=== PATIENT | male | born 1985 | race Asian ===

== ENCOUNTER 2016-09-20 14:58 | Emergency (ER) | payer OTHER ==
[2016-09-20 15:03] VITALS: TEMP 98; BMI 34.4
[2016-09-20] MEDS ORDERED: IBUPROFEN 600 MG TABLET (FP) PO ONE ×2 (15:50→15:52)
[2016-09-20 16:28] VITALS: BP 140/105; PULSE 93
[2016-09-20] MEDS ORDERED: METOCLOPRAMIDE HCL 10 MG TABLET (FP) PO ONE (16:29)
[2016-09-20] MEDS ORDERED: KETOROLAC TROMETHAMINE 30 MG/1 ML VIAL ONE (16:29)
[2016-09-20] MEDS ORDERED: METOCLOPRAMIDE HCL INJECTION 10 MG/2 ML VIAL ONE (16:30)
[2016-09-20] MEDS ORDERED: METOCLOPRAMIDE HCL INJECTION 10 MG/2 ML VIAL IVPB ONE (16:30)
[2016-09-20] MEDS ORDERED: KETOROLAC TROMETHAMINE 30 MG/1 ML VIAL IVPUSH ONE (16:30)
--- NOTE | 2016-09-20 16:57 | PDOC ---
History of Present Illness - General Chief Complaint: Headache Stated Complaint: HEADACHES Time Seen by Provider: 09/20/16 15:30 History Source: Patient Exam Limitations: No Limitations - History of Present Illness Initial Comments: 09/20/16 16:56 Chief complaint: Headache Patient is a healthy 31-year-old male complaining of 1-1/2 months of constant on and off headaches, worse in the last day, has been taking Tylenol and Motrin. Patient denies any difficulty with arms and legs, no vomiting, and is ambulatory. Patient states it's mostly a frontal headache going to the back. Patient has not been evaluated for this in the past. GENERAL/CONSTITUTIONAL: No fever, weakness. dizziness HEAD, EYES, EARS, NOSE AND THROAT: No change in vision. No ear pain or discharge. No sore throat. CARDIOVASCULAR: No chest pain RESPIRATORY: No shortness of breath or cough GASTROINTESTINAL: No pain, nausea, vomiting, diarrhea or constipation GENITOURINARY: No dysuria MUSCULOSKELETAL: No neck or back pain SKIN: No rash NEUROLOGIC: + headache, no: vertigo, loss of consciousness, or loss of sensation. GENERAL: The patient is awake, alert, and fully oriented, in no acute distress. HEAD: Normal with no signs of trauma. EYES: Pupils equal, round and reactive to light, sclera anicteric, conjunctiva clear. EOMs intact Cranial nerves II through XII grossly intact ENT: pharynx: no erythema, no exudate, uvula midline NECK: supple CHEST: clear, nontender, rr ABD: soft, nontender EXTREMITIES: Normal range of motion, no edema. NEUROLOGICAL: Normal speech, normal gait. SKIN: Warm, Dry Past History - Past Medical History Allergies/Adverse Reactions: Allergies Allergy/AdvReac Type Severity Reaction Status Date / Time No Known Allergies Allergy Verified 09/20/16 15:00 Home Medications: Ambulatory Orders Omeprazole Magnesium [Prilosec] 2.5 mg PO ASDIR 09/20/16 - Psycho/Social/Smoking Cessation Hx Anxiety: No Suicidal Ideation: No Smoking History: Never smoked Have you smoked in the past 12 months: No Number of Cigarettes Smoked Daily: 0 Information on smoking cessation initiated: No Hx Alcohol Use: No Drug/Substance Use Hx: No Substance Use Type: None *Physical Exam - Vital Signs Last Vital Signs Temp Pulse Resp BP Pulse Ox 98.0 F 93 H 16 140/105 100 09/20/16 15:01 09/20/16 16:25 09/20/16 16:25 09/20/16 16:25 09/20/16 16:25 ED Treatment Course - RADIOLOGY Radiology Studies Ordered: Category Date Time Status HEAD CT WITHOUT CONTRAST [CT] Stat CT Scan 09/20/16 15:50 Completed - Medications Given in the ED: ED Medications Discontinued Medications Generic Name Dose Route Start Last Admin Trade Name Marcia PRN Reason Stop Dose Admin Ibuprofen 600 mg 09/20/16 15:50 09/20/16 15:53 Motrin - PO 09/20/16 15:51 600 mg ONCE ONE Administration Ketorolac Tromethamine 30 mg 09/20/16 16:30 09/20/16 16:38 Toradol Injection - IVPUSH 09/20/16 16:31 30 mg ONCE ONE Administration Metoclopramide HCl 10 mg 09/20/16 16:30 09/20/16 16:38 Reglan Injection - IVPB 09/20/16 16:31 10 mg ONCE ONE Administration Medical Decision Making - Medical Decision Making 09/20/16 Agent with ongoing headache, 2 weeks, elevated blood pressure, we'll get a head CT given worsening headache, we'll retake blood pressure and correlate with CT and symptoms and if CT is negative will treat for headache, and reevaluate blood pressure again 5:30 PM patient feels better after medication, blood pressure has normalized will follow-up with regular doctor, discussed fully with him and patient had all questions answered *DC/Admit/Observation/Transfer Diagnosis at time of Disposition: Headache Qualifiers: Headache type: unspecified Headache chronicity pattern: unspecified pattern Intractability: not intractable Qualified Code(s): R51 - Headache - Discharge Dispostion Disposition: HOME Condition at time of disposition: Stable Admit: No - Patient Instructions Printed Discharge Instructions: DI for Headache Additional Instructions: Follow-up with your doctor tomorrow, he will be take your blood pressure, further assess her symptoms and do necessary evaluation and management. Return to the ER if you're worse or other concerns
== END 2016-09-20 17:41 | disposition home or self-care (01) ==
LOC: JER 14:58 → JERFT 14:58
PROC: 3E0333Z Introduction of Anti-inflammatory into Peripheral Vein, Percutaneous Approach (ICD-10-PCS; principal; 2016-09-20)
PROC: 3E033GC Introduction of Other Therapeutic Substance into Peripheral Vein, Percutaneous Approach (ICD-10-PCS; 2016-09-20)
DX: R51 Headache (principal); I10 Essential (primary) hypertension
CPT/HCPCS: 70450-TC; 96374; 96375; 99281-25

== ENCOUNTER 2017-05-19 21:25 | Emergency (ER) | payer OTHER ==
[2017-05-19 21:31] VITALS: BP 160/98; PULSE 96; TEMP 98.4; BMI 34.1
--- NOTE | 2017-05-19 21:34 | PDOC ---
Rapid Medical Evaluation Time Seen by Provider: 05/19/17 21:29 Medical Evaluation: Allergies Allergy/AdvReac Type Severity Reaction Status Date / Time No Known Allergies Allergy Verified 09/20/16 15:00 05/19/17 21:29 I have performed a brief in-person evaluation of this patient. The patient presents with a chief complaint of: throat and ear pain x2 weeks, Pertinent physical exam findings: posterior oropharynx erythema. Serous effusion r ear I have ordered the following: Rapid strep The patient will proceed to the ED for further evaluation.
--- NOTE | 2017-05-19 22:31 | PDOC ---
History of Present Illness - General Chief Complaint: Sore Throat Stated Complaint: THROAT/EAR INFECTION Time Seen by Provider: 05/19/17 21:29 History Source: Patient Exam Limitations: No Limitations - History of Present Illness Initial Comments: 05/19/17 22:24 31 yr male with sore throat started 2 weeks ago comes and goes with low grade fever. family at home with same symptoms. Pt also with right ear pain. Timing/Duration: constant, intermittent Severity: moderate Past History - Past Medical History Allergies/Adverse Reactions: Allergies Allergy/AdvReac Type Severity Reaction Status Date / Time No Known Allergies Allergy Verified 09/20/16 15:00 Home Medications: Ambulatory Orders Azithromycin [Zithromax 250mg Tablets -] 250 mg PO UTDICT #6 tab 05/19/17 COPD: No Other medical history: denies - Suicide/Smoking/Psychosocial Hx Smoking History: Never smoked Have you smoked in the past 12 months: No Number of Cigarettes Smoked Daily: 0 Information on smoking cessation initiated: No Hx Alcohol Use: No Drug/Substance Use Hx: No Substance Use Type: None Review of Systems - Review of Systems Able to Perform ROS?: Yes Is the patient limited Sammarinese proficient: No Constitutional: Yes: Symptoms Reported, Fever HEENTM: Yes: Ear Pain (right ), Throat Pain Respiratory: No: Symptoms reported Cardiac (ROS): No: Symptoms Reported ABD/GI: No: Symptoms Reported *Physical Exam - Vital Signs Last Vital Signs Temp Pulse Resp BP Pulse Ox 98.4 F 96 H 18 160/98 97 05/19/17 21:29 05/19/17 21:29 05/19/17 21:29 05/19/17 21:29 05/19/17 21:29 - Physical Exam General Appearance: Yes: Nourished HEENT: positive: EOMI, JENNIFER, TM Bulging, TM Erythema (right ) Neck: positive: Supple, Lymphadenopathy (R). negative: Tender, Lymphadenopathy (L), Rigidity, Tender lateral, Tender midline Respiratory/Chest: positive: Lungs Clear, Normal Breath Sounds. negative: Chest Tender Cardiovascular: positive: Regular Rhythm, Regular Rate Extremity: positive: Normal Capillary Refill, Normal Inspection, Normal Range of Motion Integumentary: positive: Normal Color, Dry, Warm ED Treatment Course - ADDITIONAL ORDERS Additional order review: 05/19/17 21:35 Group A Strep Rapid Antigen - Final Throat Medical Decision Making - Medical Decision Making 05/19/17 22:27 cc: sore throat ear pain on and off 2 weeks non toxic well appearing in no distress pt states the sore throat is getting worse taking OTC meds without relief negative rapid strep however will treat as pt has had 2 weeks of symptoms, is not improving *DC/Admit/Observation/Transfer Diagnosis at time of Disposition: Pharyngitis Qualifiers: Pharyngitis/tonsillitis etiology: unspecified etiology Qualified Code(s): J02.9 - Acute pharyngitis, unspecified - Discharge Dispostion Disposition: HOME Condition at time of disposition: Good - Prescriptions Prescriptions: Azithromycin [Zithromax 250mg Tablets -] 250 mg PO UTDICT #6 tab - Referrals Referrals: Esvin Nix MD [Staff Physician] - - Patient Instructions Additional Instructions: gargle with warm salt water 4-5 times a day take ibuprofen or tylenol for fever or pain follow with the ENT doctor if no improvement after taking the antibiotics - Post Discharge Activity
== END 2017-05-19 22:49 | disposition home or self-care (01) ==
LOC: JERFT 21:25
DX: J02.9 Acute pharyngitis, unspecified (principal)
CPT/HCPCS: 87070; 87077; 87430; 99281-25

== ENCOUNTER 2018-08-27 08:06 | Emergency (ER) | payer OTHER ==
[2018-08-27 08:18] VITALS: BP 133/92; PULSE 87; TEMP 98.1; BMI 34.4
[2018-08-27] MEDS ORDERED: KETOROLAC TROMETHAMINE 60 MG/2 ML VIAL IM ONE (08:44)
[2018-08-27] MEDS ORDERED: KETOROLAC TROMETHAMINE 60 MG/2 ML VIAL ONE (08:45)
--- NOTE | 2018-08-27 08:51 | PDOC ---
History of Present Illness - General Chief Complaint: Pain Stated Complaint: HEAD AND BACK PAIN Time Seen by Provider: 08/27/18 08:36 History Source: Patient Exam Limitations: No Limitations (back, leg pain and headache x 5 days) - History of Present Illness Associated Symptoms: reports: headaches. denies: cough, diaphoresis, fever/ chills, syncope Past History - Travel Traveled outside of the country in the last 30 days: No Close contact w/someone who was outside of country & ill: No - Past Medical History Allergies/Adverse Reactions: Allergies Allergy/AdvReac Type Severity Reaction Status Date / Time No Known Allergies Allergy Verified 08/27/18 08:18 Home Medications: Ambulatory Orders Cyclobenzaprine HCl [Flexeril -] 10 mg PO TID #21 tablet 08/27/18 Ibuprofen 800 mg PO ACDIN 7 Days #21 tablet 08/27/18 COPD: No - Suicide/Smoking/Psychosocial Hx Smoking History: Never smoked Have you smoked in the past 12 months: No Number of Cigarettes Smoked Daily: 0 Hx Alcohol Use: No Drug/Substance Use Hx: No Substance Use Type: None Review of Systems - Review of Systems Constitutional: No: Chills, Fever HEENTM: No: Nose Congestion, Throat Swelling, Difficulty Swallowing Respiratory: No: Shortness of Breath Cardiac (ROS): No: Chest Pain ABD/GI: No: Nausea Musculoskeletal: Yes: Back Pain. No: Muscle Pain, Muscle Weakness Neurological: Yes: Headache. No: Numbness, Paresthesia, Seizure, Tingling, Tremors, Weakness, Dizziness *Physical Exam - Vital Signs Last Vital Signs Temp Pulse Resp BP Pulse Ox 98.1 F 87 18 133/92 99 08/27/18 08:16 08/27/18 08:16 08/27/18 08:16 08/27/18 08:16 08/27/18 08:16 - Physical Exam General Appearance: Yes: Nourished HEENT: positive: EOMI, JENNIFER, TMs Normal, Pharynx Normal Neck: positive: Supple Respiratory/Chest: positive: Lungs Clear, Normal Breath Sounds Cardiovascular: positive: Regular Rhythm, Regular Rate, S1, S2 Musculoskeletal: positive: Normal Inspection Extremity: positive: Normal Capillary Refill, Normal Inspection, Normal Range of Motion, Other (FROM all extremities, + muscle tenderness in LS spine and hamstrings., neg SLR) Neurologic: positive: slumber room attendant II-XII NML intact, Fully Oriented, Alert Moderate Sedation - Procedure Monitoring Vital Signs: Procedure Monitoring Vital Signs Temperature 98.1 F 08/27/18 08:16 Pulse Rate 87 08/27/18 08:16 Respiratory Rate 18 08/27/18 08:16 Blood Pressure 133/92 08/27/18 08:16 O2 Sat by Pulse Oximetry (%) 99 08/27/18 08:16 Medical Decision Making - Medical Decision Making 08/27/18 08:48 Patient is a 33 years old male with no prior medical history. Presents with lower back pain pain behind both hamstrings and headache for 5 days. Patient denies any trauma or heavy lifting or strenuous activity. He reports his headache is only relieved with Aleve, + intermittent photophobia. He denies any visual disturbance , sinus pressure, URI sx, nausea, vomiting. Pt reports his blood pressure was elevated for the past 2 years but has been monitoring it on diet. PCP is aware. Patient denies any UTI symptoms any bowel bladder incontinence or saddle anesthesia. non focal neuro exam + muscle tenderness behind ham strings toradol given Rx for flexeril PCP f/u for BP monitor discussed 08/27/18 11:58 pt reassessed after toradol, felt much better 08/27/18 19:39 *DC/Admit/Observation/Transfer Diagnosis at time of Disposition: Back muscle spasm Headache Qualifiers: Headache type: unspecified Headache chronicity pattern: acute headache Intractability: not intractable Qualified Code(s): R51 - Headache - Discharge Dispostion Disposition: HOME Condition at time of disposition: Stable Decision to Admit order: No - Prescriptions Prescriptions: Cyclobenzaprine HCl [Flexeril -] 10 mg PO TID #21 tablet Ibuprofen 800 mg PO ACDIN 7 Days #21 tablet - Referrals Referrals: Varinder Yee MD [Primary Care Provider] - - Patient Instructions Printed Discharge Instructions: DI for Headache, DI for Back Spasm Additional Instructions: please follow-up with her primary care doctor for blood pressure monitoring Return to the Emergency Department if worsening symptoms occurs. DO not drive or operate any heavy machinery when you take the muscle relaxant medication. - Post Discharge Activity
== END 2018-08-27 09:34 | disposition home or self-care (01) ==
LOC: JERFT 08:06
PROC: 3E0233Z Introduction of Anti-inflammatory into Muscle, Percutaneous Approach (ICD-10-PCS; principal; 2018-08-27)
DX: M62.830 Muscle spasm of back (principal); R51 Headache
CPT/HCPCS: 96372; 99281-25

== ENCOUNTER 2018-09-18 04:47 | Emergency (ER) | payer OTHER ==
--- NOTE | 2018-09-18 05:03 | PDOC ---
History of Present Illness - General Stated Complaint: BACK PAIN/ABD PAIN Time Seen by Provider: 09/18/18 05:02 - History of Present Illness Initial Comments: 09/18/18 05:15 The patient is a 33 year old male with no significant PMH who presents for evaluation of right flank pain and abdominal pain. The patient reports sudden onset of sharp right flank pain with radiation into his groin that awoke him from sleep and prompted his presentation to the ED for further evaluation. He denies similar symptoms in the past or any exacerbating or relieving factors. He otherwise denies fevers, chills, SOB, chest pain, nausea, vomiting or changes with urination or bowel movements. Past History - Past Medical History Allergies/Adverse Reactions: Allergies Allergy/AdvReac Type Severity Reaction Status Date / Time No Known Allergies Allergy Verified 09/18/18 05:21 Home Medications: Ambulatory Orders Cyclobenzaprine HCl [Flexeril -] 10 mg PO TID #21 tablet 08/27/18 Ibuprofen 800 mg PO ACDIN 7 Days #21 tablet 08/27/18 COPD: No - Suicide/Smoking/Psychosocial Hx Smoking History: Never smoked Have you smoked in the past 12 months: No Number of Cigarettes Smoked Daily: 0 Hx Alcohol Use: No Drug/Substance Use Hx: No Substance Use Type: None Review of Systems - Review of Systems Comments:: 09/18/18 05:17 Constitutional: No fevers, chills, fatigue, malaise HEENT: No Rhinorrhea, nasal congestion, visual changes Cardiovascular: No chest pain, syncope, palpitations, lightheadedness Respiratory: No Cough, SOB, Hemoptysis, Gastrointestinal: Lower abdominal pain. No Nausea, Vomiting, Constipation, Diarrhea, Melena Genitourinary: Right flank pain. No Dysuria, Frequency, Urgency, Hesitancy, Hematuria, Musculoskeletal: No Myalgia, arthralgia Skin: No rashes, itching, bruising, pallor Neurologic: No Headache, Dizziness, Numbness, Weakness, or Tingling Psychiatric: No Hallucinations. No SI or HI *Physical Exam - Physical Exam Comments: 09/18/18 05:18 General Appearance: Nourished. Appearing mildly uncomfortable HEENT: No Pharyngeal Erythema, Tonsillar Exudate, Tonsillar Erythema Neck: No Cervical Lymphadenopathy Respiratory/Chest: Lungs Clear, Normal Breath Sounds. No Crackles, Rales, Rhonchi, Wheezing Cardiovascular: Regular Rhythm, Regular Rate. No Murmur, Gallops, Rubs Gastrointestinal/Abdominal: Normal Bowel Sounds, Soft. No Guarding, Rebound, Tenderness Genital Exam: Normal appear glans, No hernia noted. Testicles in normal alignment. Musculoskeletal: Mild Right CVA Tenderness. No Left CVA Tenderness Extremity: Normal Capillary Refill Integumentary: Normal Color, Dry, Warm Neurologic: Fully Oriented, Alert, Normal Mood/Affect, Normal Response, ED Treatment Course - LABORATORY CBC & Chemistry Diagram: 09/18/18 05:45 09/18/18 05:45 Medical Decision Making - Medical Decision Making 09/18/18 05:22 The patient is a 33 year old male with no significant PMH who presents for evaluation of right flank pain and abdominal pain. Differential includes but is not limited to: Kidney stone, UTI, Infectious, Metabolic derangement. Given the patient's history and physical exam, we will obtain a cbc, cmp, lipase, ua to evaluate further. We will treat with iv fluids and toradol and continue to monitor and reassess while here in the ED. 09/18/18 06:45 CBC, cmp, lipase is unremarkable. UA demonstrates blood in the urine. We will obtain a renal spiral CT to evaluate further and continue to monitor and reassess in the meantime. *DC/Admit/Observation/Transfer - Discharge Dispostion Condition at time of disposition: Fair - Referrals Referrals: Varinder Yee MD [Primary Care Provider] - - Patient Instructions - Post Discharge Activity
[2018-09-18] MEDS ORDERED: SODIUM CHLORIDE 0.9% 500 ML INFUS.BAG IV ONE (05:12)
[2018-09-18] MEDS ORDERED: KETOROLAC TROMETHAMINE 30 MG/1 ML VIAL IVPUSH ONE (05:12)
--- NOTE | 2018-09-18 05:15 | PDOC ---
Attending Attestation - Resident Resident Name: Krish Russell - ED Attending Attestation I have performed the following: I have examined & evaluated the patient, The case was reviewed & discussed with the resident, I agree w/resident's findings & plan - HPI HPI: 09/18/18 05:14 Pt comes with right flank pain radiating to the right testicle that began suddenly and woke him from sleep tonight. 09/18/18 05:16 Pt thinks that it may be gas. He has no dysuria or hematuria. - Physicial Exam PE: 09/18/18 05:15 Agree with resident exam. HEENT normal. Afebrile. Testicles normal; no skin rashes; no rebound and no guarding of abd. Some right sided flank pain. - Medical Decision Making 09/18/18 06:09 Pt will be hydrated and he will receive toradol. We will reeval and decide on imaging, once his labs return 09/18/18 06:10 WBC normal. CBC normal 09/18/18 06:30 [place] normal; UA pending
[2018-09-18 05:21] VITALS: PULSE 68; TEMP 98.7; BMI 33.4
[2018-09-18] MEDS ORDERED: KETOROLAC TROMETHAMINE 30 MG/1 ML VIAL ONE (05:24)
[2018-09-18 05:51] LABS: BASO % 0.5 % (0-2.0); EOS % 1.1 % (0-4.5); HEMATOCRIT 40.1 % (35.4-49); HEMOGLOBIN 13.9 GM/dL (11.7-16.9); LYMPH % 36.3 % (8-40); MCHC 34.6 g/dl (32.0-35.9); MEAN CELL VOLUME 89.7 fl (80-96); MEAN PLT VOLUME 8.1 fl (7.5-11.1); MONO % 8.4 % (3.8-10.2); NEUT % 53.7 % (42.8-82.8); PLATELET COUNT 170 K/MM3 (134-434); RBC 4.47 M/mm3 (4.00-5.60); RDW 12.8 % (11.9-15.9); WHITE BLOOD COUNT 4.9 K/mm3 (4.0-10.0)
[2018-09-18 06:03] LABS: EPI CELLS 1.8 /HPF (0-5); PH,URINE 6.5 (5.0-8.0); URINE APPEARANCE CLEAR; URINE BACTERIA 5.9 /hpf (NEGATIVE); URINE BILIRUBIN NEGATIVE (NEGATIVE); URINE CASTS 4 /hpf (0-8); URINE COLOR YELLOW; URINE GLUCOSE (UA) NEGATIVE (NEGATIVE); URINE KETONE NEGATIVE (NEGATIVE); URINE LEUK ESTERASE 1+ (NEGATIVE); URINE NITRITE NEGATIVE (NEGATIVE); URINE PROTEIN NEGATIVE (NEGATIVE); URINE RBC 22 /hpf (0-4); URINE UROBILINOGEN 0.2 mg/dL (0.2-1.0); URINE WBC 7 /hpf (0-5)
[2018-09-18 06:25] LABS: ALBUMIN 3.8 g/dl (3.4-5.0); ALK PHOS 63 U/L (45-117); ANION GAP 9 MMOL/L (8-16); BILIRUBIN,TOTAL 0.2 mg/dL (0.2-1); BLOOD UREA NITROGEN 11 mg/dL (7-18); CALCIUM 8.3 mg/dL (8.5-10.1); CHLORIDE 107 mmol/L (98-107); CO2 27 mmol/L (21-32); CREATININE 0.8 mg/dL (0.55-1.3); GLUCOSE,RANDOM 111 mg/dL (74-106); LIPASE 98 U/L (73-393); POTASSIUM 3.6 mmol/L (3.5-5.1); SGOT/AST 23 U/L (15-37); SGPT/ALT 52 U/L (13-61); SODIUM 142 mmol/L (136-145); TOT PROT 6.8 g/dl (6.4-8.2)
[2018-09-18 07:46] VITALS: BP 122/90
--- NOTE | 2018-09-18 07:47 | PDOC ---
*Physical Exam - Vital Signs Last Vital Signs Temp Pulse Resp BP Pulse Ox 98.7 F 68 18 122/73 98 09/18/18 04:47 09/18/18 04:47 09/18/18 04:47 09/18/18 04:47 09/18/18 04:47 ED Treatment Course - LABORATORY CBC & Chemistry Diagram: 09/18/18 05:45 09/18/18 05:45 - ADDITIONAL ORDERS Additional order review: Laboratory Results 09/18/18 09/18/18 05:45 05:45 Sodium 142 Potassium 3.6 Chloride 107 Carbon Dioxide 27 Anion Gap 9 BUN 11 Creatinine 0.8 Creat Clearance w eGFR 112.75 Random Glucose 111 H Calcium 8.3 L Total Bilirubin 0.2 AST 23 ALT 52 Alkaline Phosphatase 63 Total Protein 6.8 Albumin 3.8 Lipase 98 Urine Color Yellow Urine Appearance Clear Urine pH 6.5 Ur Specific [place] 1.018 Urine Protein Negative Urine Glucose (UA) Negative Urine Ketones Negative Urine Blood 1+ H Urine Nitrite Negative Urine Bilirubin Negative Urine Urobilinogen 0.2 Ur Leukocyte Esterase 1+ H Urine WBC (Auto) 7 Urine RBC (Auto) 22 Urine Casts (Auto) 4 U Epithel Cells (Auto) 1.8 Urine Bacteria (Auto) 5.9 09/18/18 05:45 RBC 4.47 MCV 89.7 MCHC 34.6 RDW 12.8 MPV 8.1 Neutrophils % 53.7 Lymphocytes % 36.3 Monocytes % 8.4 Eosinophils % 1.1 Basophils % 0.5 - Medications Given in the ED: ED Medications Discontinued Medications Generic Name Dose Route Start Last Admin Trade Name Freq PRN Reason Stop Dose Admin Ketorolac Tromethamine 30 mg 09/18/18 05:12 09/18/18 05:50 Toradol Injection - IVPUSH 09/18/18 05:13 Not Given ONCE ONE Sodium Chloride 1,000 ml 09/18/18 05:12 09/18/18 05:50 Normal Saline - IV 09/18/18 05:13 1,000 ml ONCE ONE Administration Medical Decision Making - Medical Decision Making Pt was signed out to me by resident Dr. Russell, who explained the presentation , ED course, any pending results, and needed interventions. Pending results include non-contrast CT abd/pelvis. Pt is currently stable and is lying comfortably. Pt states pain is significantly improved since arrival in the ER, and having a normal BM. Pt does not wish to have CT abd/pelvis at this time. Repeat abdominal exam showed no tenderness in abdomen or CVA. Strict return precautions provided for infected stone, appendicitis, testicular torsion. Pt will follow-up with PCP. 09/18/18 07:44 *DC/Admit/Observation/Transfer Diagnosis at time of Disposition: RLQ abdominal pain - Discharge Dispostion Disposition: HOME Condition at time of disposition: Improved Decision to Admit order: No - Referrals Referrals: Varinder Yee MD [Primary Care Provider] - - Patient Instructions Printed Discharge Instructions: DI for Kidney Stones Additional Instructions: You were seen in the ER today for right-sided abdominal and groin pain. The results of your labs today were normal. Please follow-up with your primary care doctor within 1-2 days to discuss your visit and make sure your symptoms have improved. Please return to the ER if you have any worsening pain, development of fevers or chills, loss of consciousness, inability to tolerate food or fluids , or any other concerns. - Post Discharge Activity
== END 2018-09-18 07:48 | disposition home or self-care (01) ==
LOC: JER 04:47
PROC: 3E0333Z Introduction of Anti-inflammatory into Peripheral Vein, Percutaneous Approach (ICD-10-PCS; principal; 2018-09-18)
DX: R10.31 Right lower quadrant pain (principal)
CPT/HCPCS: 36415; 80053; 81003; 83690; 85025; 96374; 99282-25

== ENCOUNTER 2020-03-17 04:25 | Day surgery (SDC) | payer OTHER ==
[2020-03-14 12:26] VITALS: BMI 31.9
[~2020-03-17 04:25] MED LIST: IOHEXOL 300 MG/ML INFUS..BTL IV ONE
--- OUTSIDE RECORDS SUMMARY | 2020-03-17 04:35 | XMS ---
:1985 Author Organization [facility] Support Name Relationship Address Phone [facility] [facility] Unavailable [address] [place] [address] LAKHWINDER BROTHER [address] [place] [address] [employer] Unavailable [address] [place] [address] Re-disclosure Warning The records that you are about to access may contain information from federally- assisted alcohol or drug abuse programs. If such information is present, then the following federally mandated warning applies: This information has been disclosed to you from records protected by federal confidentiality rules (42 CFR part 2). The federal rules prohibit you from making any further disclosure of this information unless further disclosure is expressly permitted by the written consent of the person to whom it pertains or as otherwise permitted by 42 CFR part 2. A general authorization for the release of medical or other information is NOT sufficient for this purpose. The Federal rules restrict any use of the information to criminally investigate or prosecute any alcohol or drug abuse patient.The records that you are about to access may contain highly sensitive health information, the redisclosure of which is protected by Article 27-F of the [facility] Public Health law. If you continue you may haveaccess to information: Regarding HIV / AIDS; Provided by facilities licensed or operated by the [facility] Office of Mental Health; or Provided by the [facility] Office for People With Developmental Disabilities. If such information is present, then the following [facility] mandated warning applies: This information has been disclosed to you from confidential records which are protected by state law. State law prohibits you from making any further disclosure of this information without the specific written consent of the person to whom it pertains, or as otherwise permitted by law. Any unauthorized further disclosure in violation of state law may result in a fine or senior care sentence or both. A general authorization for the release of medical or other information is NOT sufficient authorization for further disclosure. Insurance Providers Payer name Policy type Policy ID Covered Covered republican's Policy P olga / Coverage republican ID relationship to Virgen Inf ormation type virgen YUKI [id number] 100 HEALTH NON CAP Results ID Date Data Source [id number] 03/13/2020 02:55:00 PM EDT [facility] Name Value Range Interpretation Description Data Sup porting Code Source(s) Document(s ) SARS [facility] coronavirus 2 RNA This lab was ordered by [facility] and reported by [facility]. Procedure
[2020-03-17] MEDS ORDERED: PROPOFOL 20 ML ONE ×2 (13:26)
[2020-03-17] MEDS ORDERED: LIDOCAINE HCL/PF 2% SDV 5ML VIAL ONE (13:26)
[2020-03-17] MEDS ORDERED: MIDAZOLAM HCL 2 MG/2 ML SINGLE DOSE VIAL ONE (13:27)
[2020-03-17] MEDS ORDERED: ceFAZolin SODIUM 1 GM VIAL IVPB ONE (13:50)
[2020-03-17] MEDS ORDERED: IOHEXOL 300 MG/ML INFUS..BTL IV ONE (13:55)
[2020-03-17] MEDS ORDERED: ceFAZolin SODIUM 1 GM VIAL ONE (13:59)
[2020-03-17] MEDS ORDERED: DEXAMETHASONE SOD PHOSPHATE 4 MG/1 ML VIAL ONE (13:59)
[2020-03-17] MEDS ORDERED: GENTAMICIN SO4 80 MG/2 ML VIAL ONE (13:59)
--- NOTE | 2020-03-17 15:05 | OP ---
Operative Note - Note: Operative Date: 03/17/20 Pre-Operative Diagnosis: left upj stone Operation: cystoscopy/left retrograde pyelogram/left ureteroscopic stone basketing of left distal stone/left ureteroscopic laser lithotripsy of proximal 10+ mm upj stone/left retrograde pyelogram/left ureteral stent placement Findings: proximal 10+ mm left ureteral stone distal 4+ mm ureteral stone grade 3/5 hydronephrosis Post-Operative Diagnosis: Other (left upj stone measuring 10 mm x 6+ mm with distal 4+ mm stone with hydronephrosis) Surgeon: Jeferson Buck Anesthesia: General Specimens Removed: distal left ureteral stone Drains & Tubes with Location: 12/04 left ureteral stent
[2020-03-17] MEDS ORDERED: oxyCODONE HCL 5 MG TABLET PO PRN (15:11)
[2020-03-17] MEDS ORDERED: IBUPROFEN 800 MG/8 ML IJ IVPB PRN (15:11)
[2020-03-17] MEDS ORDERED: ONDANSETRON 4 MG/2 ML VIAL IVPUSH PRN (15:11)
[2020-03-17] MEDS ORDERED: LACTATED RINGERS SOLUTION 1,000 ML IV SCH (15:15)
--- NOTE | 2020-03-17 16:11 | OP ---
DATE OF OPERATION: 03/17/2020 PREOPERATIVE DIAGNOSIS: Left ureteropelvic junction stone measuring 10+ mm in size. POSTOPERATIVE DIAGNOSIS: Obstructing distal left ureteral stone with proximal 10+ mm ureteropelvic junction stone. ATTENDING: Jeferson Buck MD ANESTHESIA: General. PROCEDURE: Cystoscopy, left retrograde pyelogram, left ureteroscopic stone basketing of left distal ureteral stone, left ureteroscopic laser lithotripsy of proximal 10+ mm ureteropelvic junction stone, left ureteral stent placement. OPERATION: The patient has a history of bilateral urolithiasis with a 10+ mm x 6+ mm ureteropelvic junction stone. The patient was scheduled for a left ureteroscopic laser lithotripsy of the stone. All risks and benefits have been explained to the patient. Patient was brought in the operating room, placed in a supine position on the operating room table. Anesthesia and preoperative antibiotics were then administered. Patient was then placed in the dorsal lithotomy position and prepped and draped in the usual sterile manner. The CAT scan was reviewed prior to the procedure and there was no evidence of a distal left ureteral stone. A retrograde pyelogram was performed which showed an obstructing 10+ mm ureteropelvic junction stone which was just distal to the UPJ. A wire was passed into the kidney. At this point rigid ureteroscopy was performed. Intubating the left distal ureteral orifice a 4+ mm stone was identified. A stone basket was used and under direct ureteroscopic visualization the stone was basketed and removed and sent for analysis. At this point the rigid ureteroscope could not be positioned in a manner that allowed for lithotripsy of the ureteropelvic junction stone. A second wire was passed proximally. A navigator was then used to dilate the ureter. Through the second wire a flexible ureteroscope was taken to the level of the stone. The stone was then seen and good access to the stone had been attained. A holmium laser probe was then utilized and laser lithotripsy of the stone was done under direct ureteroscopic visualization. No evidence of extravasation was noted. Once fragmentation of the stone was accomplished, a 6-Uzbek 24-cm stent was placed on the left side utilizing the Seldinger technique. It must be also added that an additional 8+ mm stone is noted in the left lower pole kidney. At this time the patient was discharged to the recovery room and is in stable condition. No complications were noted. The patient tolerated the procedure very well. Reema [id number]
[2020-03-17 17:36] VITALS: BP 143/89; PULSE 76; TEMP 97
--- NOTE | 2020-03-19 12:40 | PATH ---
Surgical Pathology Report Patient Name: KAELA KEANE Med. Rec. #: [id number] /Age/Gender: 1985 (Age: 34) / M Account: [id number] Location: [facility] SURGICAL Taken: 03/17/2020 Received: 03/18/2020 Reported: 03/19/2020 Physicians: Jeferson Garza M.D. Specimen(s) Received LEFT URETERAL STONE Clinical History Calculus of kidney Final Diagnosis URETER STONE, LEFT, LASER LITHOTRIPSY: URETEROLITHIASIS. MACROSCOPIC DIAGNOSIS. Electronically Signed Esperanza Jones M.D. Gross Description Received fresh labeled "left ureter stone," is a 0.4 cm in greatest dimension garcia-whatley, irregular calculus which is sent for chemical analysis. /03/18/2020 saudi/03/18/2020
[2020-03-28 14:45] LABS: SIZE 3 x 2; WEIGHT 20 mg
[2020-03-28 14:46] LABS: CA OXALATE MONOHYDR. 30%
== END 2020-03-17 17:10 | disposition home or self-care (01) ==
LOC: JASU-SURG 04:25
PROVIDERS: ATTEND Urology
PROC: 0TC78ZZ Extirpation of Matter from Left Ureter, Via Natural or Artificial Opening Endoscopic (ICD-10-PCS; principal; 2020-03-17 13:30)
PROC: 0T778DZ Dilation of Left Ureter with Intraluminal Device, Via Natural or Artificial Opening Endoscopic (ICD-10-PCS; 2020-03-17 13:30)
PROC: BT1FYZZ Fluoroscopy of Left Kidney, Ureter and Bladder using Other Contrast (ICD-10-PCS; 2020-03-17 13:30)
DX: N20.1 Calculus of ureter (principal)
CPT/HCPCS: 36415; 76000-TC-FY; 82360; 88300-TC; 94760

== ENCOUNTER 2020-03-31 04:41 | Day surgery (SDC) | payer OTHER ==
--- OUTSIDE RECORDS SUMMARY | 2020-03-21 16:06 | XMS ---
:1985 Author Organization [facility] Support Name Relationship Address Phone [employer] Unavailable [address] [place] [address] MAXIM KEANE BROTHER [address] [place] [address] MAXIM KEANE Unavailable [address] [place] [address] Re-disclosure Warning The records that you are [...] is protected by Article 27-F of the [facility] [place] Public Health law. If you continue you may haveaccess to information: Regarding HIV / AIDS; Provided by facilities licensed or operated by the [facility] [place] Office of Mental Health; or Provided by the [facility] [place] Office for People With Developmental Disabilities. If such information is present, then the following [facility] [place] mandated warning applies: This information has been [...] law may result in a fine or [place] health care [place] sentence or both. A general authorization for the release of medical or other information is NOT sufficient authorization for further disclosure. Insurance Providers Payer name Policy type Policy ID Covered Covered democrat's Policy P olga / Coverage democrat ID relationship to Virgen Inf ormation type virgen YUKI [id number] 100 HEALTH NON CAP Results ID Date Data Source [id number] 03/13/2020 02:55:00 PM EDT [facility] Name Value Range Interpretation Description Data Sup porting Code Source(s) Document(s ) SARS [facility] coronavirus 2 RNA This lab was ordered by [facility] and reported by [facility]. Procedure
[2020-03-28 13:25] VITALS: BMI 33.4
--- OUTSIDE RECORDS SUMMARY | 2020-03-31 04:45 | XMS ---
:1985 Author Organization [facility] Support Name Relationship Address Phone [employer] [facility] Unavailable [address] [place] [address] LAKHWINDER BROTHER [address] [place] [address] [employer] Unavailable [address] [place] [place] [address] Re-disclosure Warning The records that you are [...] is protected by Article 27-F of the [facility] Public Health law. If you continue you may haveaccess to information: Regarding HIV / AIDS; Provided by facilities licensed or operated by the [facility] Office of Mental Health; or Provided by the [facility] Office for People With Developmental Disabilities. If such information is present, then the following [facility] mandated warning applies: This information has been [...] law may result in a fine or skilled nursing sentence or both. A general authorization for the release of medical or other information is NOT sufficient authorization for further disclosure. Insurance Providers Payer name Policy type Policy ID Covered Covered green party's Policy P olga / Coverage green party ID relationship to Virgen Inf ormation type virgen YUKI [id number] 100 HEALTH NON CAP Results ID Date Data Source [id number] 03/13/2020 02:55:00 PM EDT [facility] Name Value Range Interpretation Description Data Sup porting Code Source(s) Document(s ) SARS [facility] coronavirus 2 RNA This lab was ordered by [facility] and reported by [facility]. Procedure
[2020-03-31] MEDS ORDERED: MIDAZOLAM HCL 2 MG/2 ML SINGLE DOSE VIAL ONE ×2 (16:38→16:40)
[2020-03-31 17:26] VITALS: TEMP 98
--- NOTE | 2020-03-31 17:34 | OP ---
Operative Note - Note: Operative Date: 03/31/20 Pre-Operative Diagnosis: Left renal stone Operation: Left ESWL Findings: 15 mm mid pole Left renal stone Post-Operative Diagnosis: Same as Pre-op Surgeon: Jeferson Buck Anesthesia: Regional Estimated Blood Loss (mls): 0 Drains, Volume Out (mls): 1 (Left JJ stent) Operative Report Dictated: Yes
[2020-03-31 18:09] VITALS: BP 136/91; PULSE 80
--- NOTE | 2020-04-01 00:21 | OP ---
DATE OF OPERATION: 03/31/2020 PREOPERATIVE DIAGNOSIS: Left renal stone. POSTOPERATIVE DIAGNOSIS: Left renal stone. PROCEDURE: Left extracorporeal shockwave lithotripsy. ATTENDING: Carlos Buck M.D. ANESTHESIA: Fractional. DESCRIPTION OF PROCEDURE: Patient was brought in the operating room, placed in a supine position on the operating room table. Ultrasonography and fluoroscopy were performed. A 15-mm stone was noted in the left mid pole. Anesthesia was then administered. Shockwave lithotripsy was then started. 3000 impulses at 17 joules of power were administered to the stone. It must be noted that there was a left stent noted in the kidney extending into the bladder. Partial fragmentation of the stone was noted. No complications were noted. The patient tolerated the procedure very well. CARLOS SKY M.D. [id number]
== END 2020-03-31 18:25 | disposition home or self-care (01) ==
LOC: JASU-SURG 04:41
PROVIDERS: ATTEND Urology
PROC: 0TF4XZZ Fragmentation in Left Kidney Pelvis, External Approach (ICD-10-PCS; principal; 2020-03-31 16:00)
DX: N20.0 Calculus of kidney (principal)

== ENCOUNTER 2020-07-21 04:22 | Day surgery (SDC) | payer OTHER ==
[2020-07-17 10:59] VITALS: BMI 32.6
[2020-07-21] MEDS ORDERED: MIDAZOLAM HCL 2 MG/2 ML SINGLE DOSE VIAL ONE ×2 (08:35→09:17)
[2020-07-21] MEDS ORDERED: PROPOFOL 20 ML ONE ×2 (08:36→09:17)
[2020-07-21 11:03] VITALS: BP 143/98; PULSE 77; TEMP 97.8
== END 2020-07-21 11:10 | disposition home or self-care (01) ==
LOC: JASU-SURG 04:22
PROVIDERS: ATTEND Urology
PROC: 0TF3XZZ Fragmentation in Right Kidney Pelvis, External Approach (ICD-10-PCS; principal; 2020-07-21 09:00)
DX: N20.0 Calculus of kidney (principal)

== ENCOUNTER 2020-07-23 11:15 | Day surgery (SDC) | payer OTHER ==
[2020-07-23 11:37] VITALS: BMI 32.6
[2020-07-23] MEDS ORDERED: morphine CARPU-JECT 4 MG/1 ML DISP.SYRIN IVPUSH ONE ×2 (11:52→15:39)
[2020-07-23] MEDS ORDERED: KETOROLAC TROMETHAMINE 15 MG/ML VIAL IVPUSH ONE (11:53)
[2020-07-23] MEDS ORDERED: SODIUM CHLORIDE 500 ML IV STA ×2 (11:53→13:25)
[2020-07-23] MEDS ORDERED: morphine SULFATE 4 MG/ML VIAL ONE ×2 (12:00→15:40)
[2020-07-23] MEDS ORDERED: KETOROLAC TROMETHAMINE 15 MG/ML VIAL ONE (12:01)
[2020-07-23] MEDS ORDERED: ONDANSETRON 4 MG/2 ML VIAL IVPUSH ONE (12:05)
[2020-07-23 13:18] LABS: BASO % 0.2 % (0-2.0); EOS % 0.1 % (0-4.5); HEMATOCRIT 46.3 % (35.4-49); HEMOGLOBIN 16.2 GM/dL (11.7-16.9); LYMPH % 11.1 % (8-40); MCH 31.3 pg (25.7-33.7); MEAN CELL VOLUME 89.5 fl (80-96); MEAN PLT VOLUME 8.4 fl (7.5-11.1); NEUT % 83.6 % (42.8-82.8); PLATELET COUNT 192 K/MM3 (134-434); RBC 5.17 M/mm3 (4.00-5.60); RDW 12.8 % (11.9-15.9); WHITE BLOOD COUNT 9.6 K/mm3 (4.0-10.0)
[2020-07-23 13:28] LABS: INR 0.98 (0.83-1.09); PROTHROMBIN TIME (PATIENT) 12.1 SEC (9.7-13.0)
[2020-07-23 13:44] LABS: POTASSIUM 3.7 mmol/L (3.5-5.1)
[2020-07-23 13:46] LABS: ALBUMIN 4.8 g/dl (3.4-5.0); BLOOD UREA NITROGEN 11.6 mg/dL (7-18); CALCIUM 9.5 mg/dL (8.5-10.1)
[2020-07-23 13:49] LABS: CREATININE 1.2 mg/dL (0.55-1.3)
[2020-07-23 13:51] LABS: BILIRUBIN,TOTAL 0.7 mg/dL (0.2-1); TOT PROT 8.5 g/dl (6.4-8.2)
[2020-07-23] MEDS ORDERED: SODIUM CHLORIDE 1,000 ML IV SCH (14:15)
[2020-07-23 14:21] LABS: EPI CELLS 5 /uL (0-25.1); HYALINE CASTS 0 /uL (0-3.1); URINE APPEARANCE TURBID; URINE BACTERIA 24 /uL (0-1359); URINE BILIRUBIN NEGATIVE (NEGATIVE); URINE COLOR YELLOW; URINE GLUCOSE (UA) NEGATIVE (NEGATIVE); URINE KETONE NEGATIVE (NEGATIVE); URINE LEUK ESTERASE NEGATIVE (NEGATIVE); URINE NITRITE NEGATIVE (NEGATIVE); URINE PROTEIN 1+ (NEGATIVE); URINE RBC 297 /uL (0-23.9); URINE UROBILINOGEN 0.2 mg/dL (0.2-1.0); URINE WBC 2 /uL (0-25.8)
[2020-07-23] MEDS ORDERED: PROMETHAZINE HCL 25 MG/1 ML VIAL IVPUSH PRN (18:00)
[2020-07-23] MEDS ORDERED: oxyCODONE HCL 5 MG TABLET PO PRN (18:00)
[2020-07-23] MEDS ORDERED: ONDANSETRON 4 MG/2 ML VIAL IVPUSH PRN (18:00)
[2020-07-23] MEDS ORDERED: LIDOCAINE HCL/PF 2% SDV 5ML VIAL ONE (18:38)
[2020-07-23] MEDS ORDERED: PROPOFOL 20 ML ONE ×2 (18:38)
[2020-07-23] MEDS ORDERED: SUCCINYLCHOLINE CHLORIDE 200 MG/10 ML SYRINGE ONE (18:42)
[2020-07-23] MEDS ORDERED: DEXAMETHASONE SOD PHOSPHATE 4 MG/1 ML VIAL ONE (18:57)
[2020-07-23] MEDS ORDERED: KETOROLAC TROMETHAMINE 30 MG/1 ML VIAL ONE (18:57)
[2020-07-23 20:32] VITALS: TEMP 98.2
[2020-07-23 20:48] VITALS: BP 152/94; PULSE 92
== END 2020-07-23 21:00 | disposition home or self-care (01) ==
LOC: JER 11:15 → JASUSAT 16:07
PROVIDERS: ATTEND Urology
PROC: 0T9680Z Drainage of Right Ureter with Drainage Device, Via Natural or Artificial Opening Endoscopic (ICD-10-PCS; 2020-07-23)
PROC: 0TC68ZZ Extirpation of Matter from Right Ureter, Via Natural or Artificial Opening Endoscopic (ICD-10-PCS; principal; 2020-07-23 18:00)
DX: N20.1 Calculus of ureter (principal)
CPT/HCPCS: 36415; 74176-TC; 80053; 81003; 82360; 85025; 85610; 87040; 87086; 88300-TC; 93005; 93010; 94760; 99285-25

== ENCOUNTER 2021-02-02 04:51 | Day surgery (SDC) | payer OTHER ==
[2021-01-29 15:40] VITALS: BMI 32.5
[2021-02-02 17:30] VITALS: BP 120/60; PULSE 72; TEMP 98
== END 2021-02-02 17:30 | disposition home or self-care (01) ==
LOC: JASU-SURG 04:51
PROVIDERS: ATTEND Urology
PROC: 0TF3XZZ Fragmentation in Right Kidney Pelvis, External Approach (ICD-10-PCS; principal; 2021-02-02 16:30)
DX: N20.0 Calculus of kidney (principal)

== ENCOUNTER → 2021-03-16 | Day surgery (SDC) | payer OTHER ==
[2021-03-12 11:28] VITALS: BMI 32.3
[~2021-03-16] MED LIST changes: -IOHEXOL 300 MG/ML INFUS..BTL IV ONE; +LACTATED RINGERS SOLUTION 1,000 ML IV SCH; +MIDAZOLAM HCL 2 MG/2 ML SINGLE DOSE VIAL ONE; +PROMETHAZINE HCL 25 MG/1 ML VIAL IVPUSH PRN; +PROPOFOL 20 ML ONE; +oxyCODONE HCL 5 MG TABLET PO PRN
[2021-03-16 16:25] VITALS: TEMP 98.1
[2021-03-16 16:27] VITALS: BP 128/76; PULSE 67
== END | disposition home or self-care (01) ==
LOC: JASU-SURG 04:28
PROVIDERS: ATTEND Urology
PROC: 0TF3XZZ Fragmentation in Right Kidney Pelvis, External Approach (ICD-10-PCS; principal; 2021-03-16 14:00)
DX: N20.0 Calculus of kidney (principal)

== ENCOUNTER 2021-09-02 05:27 | Day surgery (SDC) | payer OTHER ==
[2021-08-28 14:47] VITALS: BMI 34.9
[2021-09-02] MEDS ORDERED: MIDAZOLAM HCL 2 MG/2 ML SINGLE DOSE VIAL ONE (13:52)
[2021-09-02 14:39] VITALS: PULSE 71
[2021-09-02 15:45] VITALS: BP 140/90; TEMP 98
== END 2021-09-02 15:20 | disposition home or self-care (01) ==
LOC: JASU-SURG 05:27
PROVIDERS: ATTEND Urology
PROC: 0TF4XZZ Fragmentation in Left Kidney Pelvis, External Approach (ICD-10-PCS; principal; 2021-09-02 13:00)
DX: N20.0 Calculus of kidney (principal)

== ENCOUNTER 2022-10-20 20:55 | Emergency (ER) | payer OTHER ==
[2022-10-20 21:08] VITALS: BP 173/100; PULSE 90; RESP 18; TEMP 98; BMI 34.9
[2022-10-20] MEDS ORDERED: ONDANSETRON 4 MG/2 ML VIAL IVPUSH ONE (21:34)
[2022-10-20] MEDS ORDERED: KETOROLAC TROMETHAMINE 15 MG/ML VIAL IVPUSH ONE (21:34)
[2022-10-20] MEDS ORDERED: ONDANSETRON 4 MG/2 ML VIAL ONE (21:54)
[2022-10-20] MEDS ORDERED: KETOROLAC TROMETHAMINE 15 MG/ML VIAL ONE (21:54)
[2022-10-20 22:05] LABS: BASO % 0.6 % (0-2.0); EOS % 1.2 % (0-4.5); HEMATOCRIT 41.3 % (35.4-49); HEMOGLOBIN 14.8 GM/dL (11.7-16.9); LYMPH % 32.5 % (8-40); MCH 31.3 pg (25.7-33.7); MCHC 35.7 g/dl (32.0-35.9); MEAN CELL VOLUME 87.5 fl (80-96); MEAN PLT VOLUME 8.2 fl (7.5-11.1); MONO % 8.8 % (3.8-10.2); NEUT % 56.9 % (42.8-82.8); PLATELET COUNT 190 10^3/uL (134-434); RBC 4.72 M/mm3 (4.00-5.60); RDW 12.7 % (11.9-15.9); WHITE BLOOD COUNT 5.9 K/mm3 (4.0-10.0)
[2022-10-20 22:12] LABS: EPI CELLS 11 /uL (0-25.1); HYALINE CASTS 2 /uL (0-3.1); URINE APPEARANCE CLEAR; URINE BACTERIA 11 /uL (0-1359); URINE BILIRUBIN NEGATIVE (NEGATIVE); URINE COLOR ORANGE; URINE GLUCOSE (UA) NEGATIVE (NEGATIVE); URINE KETONE NEGATIVE (NEGATIVE); URINE LEUK ESTERASE TRACE (NEGATIVE); URINE NITRITE NEGATIVE (NEGATIVE); URINE PROTEIN 2+ (NEGATIVE); URINE RBC 4969 /uL (0-23.9); URINE UROBILINOGEN 0.2 mg/dL (0.2-1.0); URINE WBC 85 /uL (0-25.8)
[2022-10-20 22:36] LABS: BLOOD UREA NITROGEN 12.1 mg/dL (7-18); CALCIUM 9.5 mg/dL (8.5-10.1)
[2022-10-20 22:39] LABS: TOT PROT 7.4 g/dl (6.4-8.2)
[2022-10-20 22:40] LABS: BILIRUBIN,TOTAL 0.4 mg/dL (0.2-1)
== END 2022-10-21 00:19 | disposition home or self-care (01) ==
LOC: JER 20:55
PROC: 3E0333Z Introduction of Anti-inflammatory into Peripheral Vein, Percutaneous Approach (ICD-10-PCS; principal; 2022-10-20)
PROC: 3E033GC Introduction of Other Therapeutic Substance into Peripheral Vein, Percutaneous Approach (ICD-10-PCS; 2022-10-20)
DX: R10.31 Right lower quadrant pain (principal); R11.0 Nausea; R31.9 Hematuria, unspecified; I10 Essential (primary) hypertension; Z96.0 Presence of urogenital implants; Z20.822 Contact with and (suspected) exposure to COVID-19
CPT/HCPCS: 36415; 74176-TC; 80053; 81003; 85025; 87086; 99284-25; C9803-CS; U0003; U0005

== ENCOUNTER 2023-05-13 16:17 | Emergency (ER) | payer OTHER ==
[2023-05-13 16:44] VITALS: BP 132/91; PULSE 121; RESP 18; TEMP 97; BMI 33.4
== END 2023-05-13 18:03 | disposition home or self-care (01) ==
LOC: JER 16:17
DX: R04.0 Epistaxis (principal)
CPT/HCPCS: 99282-25

== ENCOUNTER 2023-09-16 20:38 | Emergency (ER) | payer OTHER ==
[2023-09-16 20:49] VITALS: RESP 18; BMI 34.2
[2023-09-16] MEDS ORDERED: FAMOTIDINE 20 MG/50 ML IVPB 20 MG/50 ML MG IVPB ONE (21:29)
[2023-09-16] MEDS ORDERED: KETOROLAC TROMETHAMINE 15 MG/ML VIAL ONE (21:30)
[2023-09-16] MEDS ORDERED: ONDANSETRON 4 MG/2 ML VIAL ONE (21:31)
[2023-09-16 21:50] LABS: BASO % 0.6 % (0-2.0); EOS % 0.6 % (0-4.5); HEMATOCRIT 45.7 % (35.4-49); HEMOGLOBIN 15.8 GM/dL (11.7-16.9); LYMPH % 30.2 % (8-40); MCH 30.7 pg (25.7-33.7); MCHC 34.6 g/dl (32.0-35.9); MEAN CELL VOLUME 88.7 fl (80-96); MEAN PLT VOLUME 7.3 fl (7.5-11.1); MONO % 7.4 % (3.8-10.2); NEUT % 61.2 % (42.8-82.8); PLATELET COUNT 191 10^3/uL (134-434); RBC 5.15 M/mm3 (4.00-5.60); RDW 13.1 % (11.9-15.9); WHITE BLOOD COUNT 6.3 K/mm3 (4.0-10.0)
[2023-09-16 21:58] LABS: INR 1.03 (0.83-1.09); PROTHROMBIN TIME (PATIENT) 11.9 SEC (9.7-13.0)
[2023-09-16 22:00] LABS: ACTIVATED PTT 28.8 SECONDS (25.2-36.5)
[2023-09-16 22:02] LABS: URINE APPEARANCE CLOUDY; URINE BILIRUBIN NEGATIVE (NEGATIVE); URINE COLOR YELLOW; URINE GLUCOSE (UA) NEGATIVE (NEGATIVE); URINE KETONE NEGATIVE (NEGATIVE); URINE LEUK ESTERASE NEGATIVE (NEGATIVE); URINE NITRITE NEGATIVE (NEGATIVE); URINE PROTEIN NEGATIVE (NEGATIVE); URINE UROBILINOGEN 0.2 mg/dL (0.2-1.0)
[2023-09-16 22:08] LABS: POTASSIUM 3.8 mmol/L (3.5-5.1)
[2023-09-16 22:10] LABS: CALCIUM 9.6 mg/dL (8.5-10.1)
[2023-09-16] MEDS: ONDANSETRON 4 MG/2 ML VIAL IVPUSH ONE (22:10)
[2023-09-16] MEDS: KETOROLAC TROMETHAMINE 15 MG/ML VIAL IVPUSH ONE (22:10)
[2023-09-16] MEDS: SODIUM CHLORIDE 0.9% 500 ML INFUS.BAG IV ONE (22:10)
[2023-09-16] MEDS: FAMOTIDINE 20 MG/50 ML IVPB 20 MG/50 ML MG IVPB ONE (22:10)
[2023-09-16 22:11] LABS: ALBUMIN 4.2 g/dl (3.4-5.0); BLOOD UREA NITROGEN 10.2 mg/dL (7-18)
[2023-09-16 22:14] LABS: CREATININE 0.9 mg/dL (0.55-1.3)
[2023-09-16 22:15] LABS: BILIRUBIN,TOTAL 0.6 mg/dL (0.2-1); TOT PROT 7.6 g/dl (6.4-8.2)
[2023-09-17 01:03] VITALS: BP 135/91; PULSE 67; TEMP 97.8
== END 2023-09-17 01:38 | disposition home or self-care (01) ==
LOC: JER 20:38
PROC: 3E033GC Introduction of Other Therapeutic Substance into Peripheral Vein, Percutaneous Approach (ICD-10-PCS; principal; 2023-09-16)
PROC: 3E033GC Introduction of Other Therapeutic Substance into Peripheral Vein, Percutaneous Approach (ICD-10-PCS; 2023-09-16)
PROC: 3E033GC Introduction of Other Therapeutic Substance into Peripheral Vein, Percutaneous Approach (ICD-10-PCS; 2023-09-16)
DX: R10.31 Right lower quadrant pain (principal); N20.0 Calculus of kidney; R00.0 Tachycardia, unspecified; Z20.822 Contact with and (suspected) exposure to COVID-19
CPT/HCPCS: 0241U-QW; 36415; 74177-TC; 80053; 81003; 83690; 85025; 85610; 85730; 86850; 86900; 86901; 87086; 93005; 93010; 99285-25; Q9967

== ENCOUNTER 2023-10-23 18:17 | Emergency (ER) | payer OTHER ==
[2023-10-23 18:22] VITALS: BP 115/63; PULSE 103; RESP 18; TEMP 98.9; BMI 34.2
[2023-10-23] MEDS ORDERED: ONDANSETRON 4 MG/2 ML VIAL ONE (18:42)
[2023-10-23] MEDS: SODIUM CHLORIDE 0.9% 500 ML INFUS.BAG IV ONE (18:55)
[2023-10-23] MEDS: ONDANSETRON 4 MG/2 ML VIAL IVPUSH ONE (18:55)
[2023-10-23] MEDS: KETOROLAC TROMETHAMINE 30 MG/1 ML VIAL IVPUSH ONE (18:56)
[2023-10-23] MEDS ORDERED: KETOROLAC TROMETHAMINE 30 MG/1 ML VIAL ONE (18:56)
[2023-10-23 19:00] LABS: BASO % 0.4 % (0-2.0); HEMATOCRIT 45.4 % (35.4-49); HEMOGLOBIN 16.1 GM/dL (11.7-16.9); LYMPH % 6.3 % (8-40); MCH 31.3 pg (25.7-33.7); MCHC 35.5 g/dl (32.0-35.9); MEAN CELL VOLUME 88.1 fl (80-96); MEAN PLT VOLUME 7.8 fl (7.5-11.1); MONO % 4.3 % (3.8-10.2); PLATELET COUNT 192 10^3/uL (134-434); RBC 5.15 M/mm3 (4.00-5.60); RDW 12.9 % (11.9-15.9); WHITE BLOOD COUNT 9.1 K/mm3 (4.0-10.0)
[2023-10-23 19:27] LABS: POTASSIUM 3.9 mmol/L (3.5-5.1)
[2023-10-23 19:30] LABS: ALBUMIN 4.3 g/dl (3.4-5.0); BLOOD UREA NITROGEN 16.4 mg/dL (7-18); CALCIUM 9.4 mg/dL (8.5-10.1)
[2023-10-23 19:33] LABS: CREATININE 1.1 mg/dL (0.55-1.3)
[2023-10-23 19:34] LABS: BILIRUBIN,TOTAL 0.9 mg/dL (0.2-1)
[2023-10-23 19:35] LABS: TOT PROT 7.6 g/dl (6.4-8.2)
[2023-10-23 20:29] LABS: EPI CELLS 21 /uL (0-25.1); HYALINE CASTS 1 /uL (0-3.1); URINE APPEARANCE CLEAR; URINE BACTERIA 123 /uL (0-1359); URINE BILIRUBIN NEGATIVE (NEGATIVE); URINE COLOR YELLOW; URINE GLUCOSE (UA) NEGATIVE (NEGATIVE); URINE KETONE TRACE (NEGATIVE); URINE LEUK ESTERASE TRACE (NEGATIVE); URINE NITRITE NEGATIVE (NEGATIVE); URINE PROTEIN 1+ (NEGATIVE); URINE WBC 51 /uL (0-25.8)
[2023-10-23] MEDS ORDERED: CEPHALEXIN MONOHYDRATE 500 MG CAPSULE (UD) ONE (20:43)
[2023-10-23 20:45] LABS: URINE RBC 43 /uL (0-23.9)
[2023-10-23] MEDS: CEPHALEXIN MONOHYDRATE 500 MG CAPSULE (UD) PO ONE (20:49)
== END 2023-10-23 20:48 | disposition home or self-care (01) ==
LOC: JER 18:17
PROC: 3E0303Z Introduction of Anti-inflammatory into Peripheral Vein, Open Approach (ICD-10-PCS; principal; 2023-10-23)
PROC: 3E030GC Introduction of Other Therapeutic Substance into Peripheral Vein, Open Approach (ICD-10-PCS; 2023-10-23)
DX: N30.00 Acute cystitis without hematuria (principal); N12 Tubulo-interstitial nephritis, not specified as acute or chronic; R11.2 Nausea with vomiting, unspecified; M54.50 Low back pain, unspecified; R50.9 Fever, unspecified
CPT/HCPCS: 36415; 74176-TC; 80053; 81003; 83690; 85025; 87086; 99284-25

== ENCOUNTER 2023-11-21 04:26 | Day surgery (SDC) | payer OTHER ==
[2023-11-15 11:43] VITALS: BMI 33.5
[2023-11-21] MEDS ORDERED: MIDAZOLAM HCL 2 MG/2 ML SINGLE DOSE VIAL ONE ×2 (14:12→14:48)
[2023-11-21] MEDS ORDERED: FENTANYL CITRATE/PF 50 MCG/ML VIAL ONE ×2 (14:47→14:48)
[2023-11-21] MEDS ORDERED: ONDANSETRON 4 MG/2 ML VIAL ONE (14:49)
[2023-11-21] MEDS ORDERED: KETOROLAC TROMETHAMINE 30 MG/1 ML VIAL ONE (14:49)
[2023-11-21 15:22] VITALS: RESP 18
[2023-11-21 17:03] VITALS: BP 114/62; PULSE 62; TEMP 97.3
== END 2023-11-21 16:50 | disposition home or self-care (01) ==
LOC: JASU-SURG 04:26
PROVIDERS: ATTEND Urology
PROC: 0TF4XZZ Fragmentation in Left Kidney Pelvis, External Approach (ICD-10-PCS; principal; 2023-11-21 14:00)
DX: N20.0 Calculus of kidney (principal)

== ENCOUNTER 2024-04-23 05:18 | Day surgery (SDC) | payer OTHER ==
[2024-04-19 10:27] VITALS: BMI 32.6
[2024-04-23] MEDS ORDERED: MIDAZOLAM HCL 2 MG/2 ML SINGLE DOSE VIAL ONE (16:13)
[2024-04-23] MEDS ORDERED: ONDANSETRON 4 MG/2 ML VIAL ONE (16:13)
[2024-04-23 17:02] VITALS: BP 125/64; PULSE 64; RESP 16; TEMP 97.8
== END 2024-04-23 17:27 | disposition home or self-care (01) ==
LOC: JASU-SURG 05:18
PROVIDERS: ATTEND Urology
PROC: 0TF4XZZ Fragmentation in Left Kidney Pelvis, External Approach (ICD-10-PCS; principal; 2024-04-23 16:34)
DX: N20.0 Calculus of kidney (principal)

== ENCOUNTER 2024-06-18 04:21 | Day surgery (SDC) | payer OTHER ==
[2024-06-11 17:10] VITALS: BMI 32.6
[2024-06-18] MEDS ORDERED: MIDAZOLAM HCL 2 MG/2 ML SINGLE DOSE VIAL ONE (09:38)
[2024-06-18 11:02] VITALS: BP 115/72; PULSE 71; RESP 18; TEMP 97.9
== END 2024-06-18 10:52 | disposition home or self-care (01) ==
LOC: JASU-SURG 04:21
PROVIDERS: ATTEND Urology
PROC: 0TF4XZZ Fragmentation in Left Kidney Pelvis, External Approach (ICD-10-PCS; principal; 2024-06-18 09:30)
DX: N20.0 Calculus of kidney (principal)